=== PATIENT | male | born 1955 ===

== ENCOUNTER 2022-10-05 09:00 | Day surgery (SDC) | payer OTHER ==
[~2022-10-05] VITALS: Ht 172.7 cm; Wt 95.3 kg
[~2022-10-05 09:00] MED LIST: ACID REDUCER20 M1 PO; TAMS0.4C PO; TOPROL XL25 M1 PO; ZESTRIL40 M1 PO
== END 2022-10-05 16:40 | disposition home or self-care (01) ==
LOC: CIR.AMB 09:00
PROVIDERS: ATTEND Colon & Rectal Surgery
DX: K64.2 Third degree hemorrhoids (principal); K64.4 Residual hemorrhoidal skin tags; K64.8 Other hemorrhoids; Z20.822 Contact with and (suspected) exposure to COVID-19; I10 Essential (primary) hypertension